=== PATIENT | male | born 1985 | race Caucasian/White ===

== ENCOUNTER 2021-01-22 12:11 | Inpatient (IN) | payer BC ==
[~2021-01-22] VITALS: Ht 175.3 cm; Wt 113.4 kg
[2021-01-22] VITALS (9 sets, daily range): BP systolic 161–188; BP diastolic 67–125
[~2021-01-22 12:11] MED LIST: ACAMPROSATE CA333 M1 PO; ALDACTONE50 M1 PO; AMITRIPTYLINE50 MG PO; BACLOFEN20 M1 PO; BENADRYL ALLERG25 M5 PO; CIALIS10 MG PO; CLARITIN10 MG PO; CLONIDINE HCL0.1 MG PO; DULOXETINE HCL40 MG PO; HYDROXYZINE HCL25 MG PO; IRON325 M1 PO; LIPITOR20 MG PO; LYRICA75 M1 PO; PROPRANOLOL HCL40 MG PO; PROTONIX40 MG PO; VITAMIN D350 MCG PO; XARE20MG PO
[2021-01-22 12:58] LABS: BASO # 0.1 10*3/uL (0.0-0.1); BASO % 1.4 % (0.0-1.0); EOS # 0.3 10*3/uL (0.0-0.4); EOS % 3.7 % (1.0-4.0); HEMATOCRIT 58.4 % (42.0-52.0); LYMPH # 1.8 10*3/uL (1.3-4.4); LYMPH % 24.9 % (27.0-41.0); MEAN CORPUSCULAR HGB 30.8 pg (27.0-31.0); MEAN CORPUSCULAR HGB CONC 34.2 g/dl (33.0-37.0); MEAN PLATELET VOLUME 9.6 fl (9.6-12.3); MONO # 0.9 10*3/uL (0.1-1.0); MONO % 11.8 % (3.0-9.0); NEUT # 4.3 10*3/uL (2.3-7.9); NEUT % 57.9 % (47.0-73.0); PLATELET COUNT AUTOMATED 299 10*3/uL (130-400); RED BLOOD COUNT 6.49 10*6/uL (4.50-5.90); RED CELL DISTRI WIDTH 12.9 % (0-14.5); WHITE BLOOD COUNT 7.4 10*3/uL (4.8-10.8)
[2021-01-22 13:18] LABS: ALBUMIN 4.3 gm/dl (3.1-4.5); ALKALINE PHOSPHATASE 123 U/L (45-117); BUN 7 mg/dl (7-24); CHLORIDE 101 mmol/L (98-107); CREATININE 0.76 mg/dL (0.70-1.30); LIPASE 1043 U/L (73-393); POTASSIUM 3.2 mmol/L (3.5-5.1); SGOT/AST 239 IU/L (3-35); SGPT/ALT 185 U/L (12-78); SODIUM 137 mmol/L (136-145); TOTAL PROTEIN 8.7 gm/dL (6.4-8.2)
[2021-01-22 13:27] LABS: TROPONIN I < 0.015 ng/ml (<0.045)
[2021-01-22 13:28] LABS: ACETAMINOPHEN (TYLENOL) < 5.0 ug/ml (10-30)
[2021-01-22 16:55] LABS: BILIRUBIN Negative (Negative); BLOOD 2+ (Negative); CLARITY Turbid (Clear); COLOR Orange (Yellow); GLUCOSE Negative (Negative); KETONE Negative (Negative); LEUKO ESTERASE Trace (Negative); NITRITE Positive (Negative); SPECIFIC GRAVITY <= 1.005 (1.001-1.030); UROBILINOGEN 0.2 E.U./dl (0.0-1.0)
[2021-01-22 16:59] LABS: URINE AMPHETAMINES < 1000 (1000ng/ml); URINE BARBITURATES < 200 (200ng/ml); URINE BENZODIAZEPINES < 200 (200ng/ml); URINE CANNABINOIDS (THC) < 50 (50ng/ml); URINE COCAINE < 300 (300ng/ml); URINE METHADONE < 300 (300ng/ml); URINE OPIATES < 300 (300ng/ml)
[2021-01-22 17:06] LABS: BACTERIA 3+; URINE PHENCYCLIDINE < 25 (25ng/ml); YEAST 1+
[2021-01-22] MEDS ORDERED: ONE DAILY ESSE1 EACH PO (17:34)
[2021-01-22] MEDS ORDERED: VITAMIN B-1250 MG PO (17:35)
[2021-01-23] VITALS (11 sets, daily range): BP systolic 124–194; BP diastolic 68–116
[2021-01-23] MEDS ORDERED: LYRICA50 M1 PO (04:25)
[2021-01-23 05:34] LABS: ACT PARTIAL THROMBO TIME 31.7 SECONDS (20.0-32.1); ALBUMIN 3.7 gm/dl (3.1-4.5); BUN 14 mg/dl (7-24); CHLORIDE 96 mmol/L (98-107); CHOLESTEROL 163 mg/dL (<200); CREATININE 0.82 mg/dL (0.70-1.30); INTERNATIONAL NORM RATIO 1.5 (2.0-3.5); POTASSIUM 3.6 mmol/L (3.5-5.1); SGOT/AST 255 IU/L (3-35); SODIUM 132 mmol/L (136-145); TRIGLYCERIDES 350 mg/dl (<150)
[2021-01-23 05:41] LABS: ALKALINE PHOSPHATASE 94 U/L (45-117); FREE T4 1.05 ng/dl (0.76-1.46); LDL CHOLESTEROL 43 mg/dL (9-159); SGPT/ALT 155 U/L (12-78); TOTAL PROTEIN 6.9 gm/dL (6.4-8.2)
[2021-01-23 06:58] LABS: BASO % 0.4 % (0.0-1.0); HEMATOCRIT 54.2 % (42.0-52.0); LYMPH # 1.3 10*3/uL (1.3-4.4); LYMPH % 13.4 % (27.0-41.0); MEAN CORPUSCULAR HGB 31.3 pg (27.0-31.0); MEAN PLATELET VOLUME 10.5 fl (9.6-12.3); MONO # 1.2 10*3/uL (0.1-1.0); MONO % 12.1 % (3.0-9.0); NEUT # 7.2 10*3/uL (2.3-7.9); NEUT % 73.5 % (47.0-73.0); RED BLOOD COUNT 5.71 10*6/uL (4.50-5.90); RED CELL DISTRI WIDTH 12.9 % (0-14.5); WHITE BLOOD COUNT 9.8 10*3/uL (4.8-10.8)
[2021-01-23 07:00] LABS: MEAN CELL VOLUME 94.9 fl (80.0-94.0); PLATELET COUNT AUTOMATED 188 10*3/uL (130-400)
[2021-01-23 08:03] LABS: VITAMIN D, 25-HYDROXY 30.6 ng/mL (30-100)
[2021-01-23 10:16] LABS: THYROID STIM HORMONE (HS) 0.932 uIU/ml (0.358-4.75)
[2021-01-23 13:40] LABS: ARTERIAL BLOOD GAS PH 7.387 (7.35-7.45); ARTERIAL BLOOD GAS PO2 70.4 (80-90)
[2021-01-23 14:21] LABS: BASO % 0.2 % (0.0-1.0); HEMATOCRIT 49.2 % (42.0-52.0); LYMPH # 1.2 10*3/uL (1.3-4.4); MEAN CELL VOLUME 93.5 fl (80.0-94.0); MEAN CORPUSCULAR HGB 31.9 pg (27.0-31.0); MEAN CORPUSCULAR HGB CONC 34.1 g/dl (33.0-37.0); MEAN PLATELET VOLUME 10.8 fl (9.6-12.3); MONO # 1.2 10*3/uL (0.1-1.0); MONO % 8.4 % (3.0-9.0); NEUT # 12.3 10*3/uL (2.3-7.9); NEUT % 82.9 % (47.0-73.0); PLATELET COUNT AUTOMATED 187 10*3/uL (130-400); RED BLOOD COUNT 5.26 10*6/uL (4.50-5.90); RED CELL DISTRI WIDTH 12.6 % (0-14.5); WHITE BLOOD COUNT 14.8 10*3/uL (4.8-10.8)
[2021-01-23 14:40] LABS: ALKALINE PHOSPHATASE 55 U/L (45-117); BUN 19 mg/dl (7-24); CHLORIDE 98 mmol/L (98-107); CREATININE 1.06 mg/dL (0.70-1.30); POTASSIUM 4.2 mmol/L (3.5-5.1); SGOT/AST 197 IU/L (3-35); SGPT/ALT 127 U/L (12-78); SODIUM 134 mmol/L (136-145); TOTAL PROTEIN 6.1 gm/dL (6.4-8.2)
[2021-01-23 18:20] LABS: BILIRUBIN Negative (Negative); BLOOD 2+ (Negative); CLARITY Clear (Clear); COLOR Dark Yellow (Yellow); GLUCOSE Trace (Negative); KETONE 1+ (Negative); LEUKO ESTERASE Negative (Negative); NITRITE Negative (Negative); SPECIFIC GRAVITY >= 1.030 (1.001-1.030); UROBILINOGEN 0.2 E.U./dl (0.0-1.0)
[2021-01-23 18:33] LABS: RBC 41-50 rbc/hpf (0-2)
[2021-01-23 18:33] LABS: HEMATOCRIT 50.2 % (42.0-52.0); MEAN CORPUSCULAR HGB 31.9 pg (27.0-31.0); MEAN CORPUSCULAR HGB CONC 32.9 g/dl (33.0-37.0); MEAN PLATELET VOLUME 11.2 fl (9.6-12.3); PLATELET COUNT AUTOMATED 173 10*3/uL (130-400); RED BLOOD COUNT 5.17 10*6/uL (4.50-5.90); RED CELL DISTRI WIDTH 12.7 % (0-14.5); WHITE BLOOD COUNT 20.7 10*3/uL (4.8-10.8)
[2021-01-23 18:34] LABS: BACTERIA 3+; HYALINE CAST 21-30
[2021-01-23 18:37] LABS: MEAN CELL VOLUME 97.1 fl (80.0-94.0)
[2021-01-23 19:02] LABS: TOTAL CELLS COUNTED 100 #CELLS
[2021-01-23 19:03] LABS: PLATELET SUFFICIENCY NORMAL (NORMAL)
[2021-01-23 22:24] LABS: HEMATOCRIT 50.1 % (42.0-52.0); MEAN CELL VOLUME 95.8 fl (80.0-94.0); MEAN CORPUSCULAR HGB 31.7 pg (27.0-31.0); MEAN CORPUSCULAR HGB CONC 33.1 g/dl (33.0-37.0); MEAN PLATELET VOLUME 11.2 fl (9.6-12.3); PLATELET COUNT AUTOMATED 177 10*3/uL (130-400); RED BLOOD COUNT 5.23 10*6/uL (4.50-5.90); RED CELL DISTRI WIDTH 12.6 % (0-14.5); WHITE BLOOD COUNT 23.3 10*3/uL (4.8-10.8)
[2021-01-23 22:53] LABS: ATYPICAL LYMPHS 2 % (0-0); BASOPHILS 1 % (0-1); PLATELET SUFFICIENCY NORMAL (NORMAL); TOTAL CELLS COUNTED 100 #CELLS
[2021-01-24] VITALS (12 sets, daily range): BP systolic 86–116; BP diastolic 43–81
[2021-01-24 06:09] LABS: HEMATOCRIT 44.7 % (42.0-52.0); MEAN CELL VOLUME 96.8 fl (80.0-94.0); MEAN CORPUSCULAR HGB 32.5 pg (27.0-31.0); MEAN CORPUSCULAR HGB CONC 33.6 g/dl (33.0-37.0); MEAN PLATELET VOLUME 11.6 fl (9.6-12.3); NUCLEATED RED BLOOD CELL 0.2 % (0.0-0.0); PLATELET COUNT AUTOMATED 152 10*3/uL (130-400); RED BLOOD COUNT 4.62 10*6/uL (4.50-5.90); RED CELL DISTRI WIDTH 12.8 % (0-14.5); WHITE BLOOD COUNT 18.9 10*3/uL (4.8-10.8)
[2021-01-24 06:25] LABS: ALBUMIN 2.5 gm/dl (3.1-4.5)
[2021-01-24 06:28] LABS: CREATININE 1.79 mg/dL (0.70-1.30); TOTAL PROTEIN 5.8 gm/dL (6.4-8.2)
[2021-01-24 06:34] LABS: POTASSIUM 3.2 mmol/L (3.5-5.1)
[2021-01-24 06:55] LABS: TOTAL CELLS COUNTED 100 #CELLS
[2021-01-24 06:56] LABS: PLATELET SUFFICIENCY NORMAL (NORMAL)
[2021-01-24 07:39] LABS: ABG BASE EXCESS -2.2 mmol/L (-2.0-2.0); ARTERIAL BLOOD GAS PH 7.408 (7.35-7.45); ARTERIAL BLOOD GAS PO2 95.9 (80-90)
[2021-01-24 13:07] LABS: BASO % 0.2 % (0.0-1.0); EOS % 0.1 % (1.0-4.0); HEMATOCRIT 40.1 % (42.0-52.0); LYMPH # 1.9 10*3/uL (1.3-4.4); LYMPH % 14.1 % (27.0-41.0); MEAN CELL VOLUME 96.9 fl (80.0-94.0); MEAN CORPUSCULAR HGB 31.6 pg (27.0-31.0); MEAN CORPUSCULAR HGB CONC 32.7 g/dl (33.0-37.0); MEAN PLATELET VOLUME 11.3 fl (9.6-12.3); MONO # 1.1 10*3/uL (0.1-1.0); MONO % 8.3 % (3.0-9.0); NEUT # 10.1 10*3/uL (2.3-7.9); NEUT % 76.6 % (47.0-73.0); PLATELET COUNT AUTOMATED 135 10*3/uL (130-400); RED BLOOD COUNT 4.14 10*6/uL (4.50-5.90); RED CELL DISTRI WIDTH 12.8 % (0-14.5); WHITE BLOOD COUNT 13.2 10*3/uL (4.8-10.8)
[2021-01-24 13:25] LABS: ALBUMIN 2.3 gm/dl (3.1-4.5); ALKALINE PHOSPHATASE 53 U/L (45-117); BUN 33 mg/dl (7-24); CHLORIDE 106 mmol/L (98-107); CREATININE 1.51 mg/dL (0.70-1.30); POTASSIUM 3.3 mmol/L (3.5-5.1); SGOT/AST 165 IU/L (3-35); SGPT/ALT 84 U/L (12-78); SODIUM 139 mmol/L (136-145); TOTAL PROTEIN 5.3 gm/dL (6.4-8.2)
[2021-01-24 18:19] LABS: BASO % 0.2 % (0.0-1.0); EOS % 0.4 % (1.0-4.0); HEMATOCRIT 38.3 % (42.0-52.0); LYMPH # 1.6 10*3/uL (1.3-4.4); LYMPH % 15.1 % (27.0-41.0); MEAN CELL VOLUME 96.2 fl (80.0-94.0); MEAN CORPUSCULAR HGB 31.4 pg (27.0-31.0); MEAN CORPUSCULAR HGB CONC 32.6 g/dl (33.0-37.0); MEAN PLATELET VOLUME 11.4 fl (9.6-12.3); MONO # 0.8 10*3/uL (0.1-1.0); MONO % 7.1 % (3.0-9.0); NEUT # 8.3 10*3/uL (2.3-7.9); NEUT % 76.7 % (47.0-73.0); PLATELET COUNT AUTOMATED 123 10*3/uL (130-400); RED BLOOD COUNT 3.98 10*6/uL (4.50-5.90); RED CELL DISTRI WIDTH 12.8 % (0-14.5); WHITE BLOOD COUNT 10.8 10*3/uL (4.8-10.8)
[2021-01-24 18:38] LABS: ALBUMIN 2.2 gm/dl (3.1-4.5); ALKALINE PHOSPHATASE 52 U/L (45-117); BUN 28 mg/dl (7-24); CHLORIDE 107 mmol/L (98-107); POTASSIUM 2.9 mmol/L (3.5-5.1); SGOT/AST 158 IU/L (3-35); SGPT/ALT 78 U/L (12-78); SODIUM 140 mmol/L (136-145); TOTAL PROTEIN 5.3 gm/dL (6.4-8.2)
[2021-01-25] VITALS (35 sets, daily range): BP systolic 93–130; BP diastolic 37–81
[2021-01-25 04:42] LABS: BASO % 0.4 % (0.0-1.0); EOS # 0.2 10*3/uL (0.0-0.4); EOS % 1.6 % (1.0-4.0); HEMATOCRIT 39.5 % (42.0-52.0); LYMPH # 1.7 10*3/uL (1.3-4.4); LYMPH % 16.7 % (27.0-41.0); MEAN CELL VOLUME 97.3 fl (80.0-94.0); MEAN CORPUSCULAR HGB 31.8 pg (27.0-31.0); MEAN CORPUSCULAR HGB CONC 32.7 g/dl (33.0-37.0); MEAN PLATELET VOLUME 11.2 fl (9.6-12.3); MONO # 0.9 10*3/uL (0.1-1.0); NEUT # 7.1 10*3/uL (2.3-7.9); NUCLEATED RED BLOOD CELL 0.4 % (0.0-0.0); PLATELET COUNT AUTOMATED 124 10*3/uL (130-400); RED BLOOD COUNT 4.06 10*6/uL (4.50-5.90); WHITE BLOOD COUNT 10.1 10*3/uL (4.8-10.8)
[2021-01-25 04:52] LABS: ACT PARTIAL THROMBO TIME 26.4 SECONDS (20.0-32.1); INTERNATIONAL NORM RATIO 1.2 (2.0-3.5)
[2021-01-25 05:02] LABS: ALBUMIN 2.4 gm/dl (3.1-4.5); ALKALINE PHOSPHATASE 60 U/L (45-117); BUN 23 mg/dl (7-24); CHLORIDE 111 mmol/L (98-107); CREATININE 0.83 mg/dL (0.70-1.30); LIPASE 311 U/L (73-393); POTASSIUM 3.6 mmol/L (3.5-5.1); SGOT/AST 148 IU/L (3-35); SGPT/ALT 81 U/L (12-78); SODIUM 140 mmol/L (136-145); TOTAL PROTEIN 5.9 gm/dL (6.4-8.2)
[2021-01-25 07:18] LABS: ABG BASE EXCESS 0.7 mmol/L (-2.0-2.0); ARTERIAL BLOOD GAS PH 7.4 (7.35-7.45); ARTERIAL BLOOD GAS PO2 108.4 (80-90)
== END 2021-01-25 10:06 | disposition short-term general hospital (02) | DRG 871 ==
LOC: ED 12:11 → ICCU 14:25 → EDHOLD 14:25 → ICCU 01-23 02:22
PROVIDERS: Internal Medicine; Physician Assistant; ADMIT Internal Medicine; ATTEND Internal Medicine
PROC: 02HV33Z Insertion of Infusion Device into Superior Vena Cava, Percutaneous Approach (ICD-10-PCS; principal; 2021-01-23)
PROC: B548ZZA Ultrasonography of Superior Vena Cava, Guidance (ICD-10-PCS; 2021-01-23)
PROC: 0BH17EZ Insertion of Endotracheal Airway into Trachea, Via Natural or Artificial Opening (ICD-10-PCS; 2021-01-24)
PROC: 5A1935Z Respiratory Ventilation, Less than 24 Consecutive Hours (ICD-10-PCS; 2021-01-24)
DX: A41.9 Sepsis, unspecified organism (principal); G93.41 Metabolic encephalopathy; K85.20 Alcohol induced acute pancreatitis without necrosis or infection; J96.01 Acute respiratory failure with hypoxia; F10.232 Alcohol dependence with withdrawal with perceptual disturbance; E87.2 Acidosis; N39.0 Urinary tract infection, site not specified; K92.2 Gastrointestinal hemorrhage, unspecified; R65.20 Severe sepsis without septic shock; F17.210 Nicotine dependence, cigarettes, uncomplicated; E87.6 Hypokalemia; R74.01 Elevation of levels of liver transaminase levels; E83.52 Hypercalcemia; Z20.822 Contact with and (suspected) exposure to COVID-19; Z71.6 Tobacco abuse counseling; R73.9 Hyperglycemia, unspecified; Z86.711 Personal history of pulmonary embolism; Z88.8 Allergy status to other drugs, medicaments and biological substances; Z90.49 Acquired absence of other specified parts of digestive tract

== ENCOUNTER 2021-03-17 12:21 | Emergency (ER) | payer BC ==
[~2021-03-17] VITALS: Ht 180.3 cm; Wt 104.5 kg
[~2021-03-17 12:21] MED LIST changes: +LYRICA50 M1 PO; +ONE DAILY ESSE1 EACH PO; +VITAMIN B-1250 MG PO
[2021-03-17 13:13] LABS: HEMATOCRIT 58.6 % (42.0-52.0); MEAN CELL VOLUME 89.2 fl (80.0-94.0); MEAN CORPUSCULAR HGB 29.4 pg (27.0-31.0); MEAN CORPUSCULAR HGB CONC 32.9 g/dl (33.0-37.0); MEAN PLATELET VOLUME 10.3 fl (9.6-12.3); PLATELET COUNT AUTOMATED 371 10*3/uL (130-400); RED BLOOD COUNT 6.57 10*6/uL (4.50-5.90); RED CELL DISTRI WIDTH 12.5 % (0-14.5); WHITE BLOOD COUNT 10.5 10*3/uL (4.8-10.8)
[2021-03-17 13:38] LABS: PLATELET SUFFICIENCY NORMAL (NORMAL); TOTAL CELLS COUNTED 100 #CELLS
[2021-03-17 13:46] LABS: ALBUMIN 3.9 gm/dl (3.1-4.5); ALKALINE PHOSPHATASE 145 U/L (45-117); BUN 10 mg/dl (7-24); CHLORIDE 94 mmol/L (98-107); SODIUM 124 mmol/L (136-145); TOTAL PROTEIN 9.4 gm/dL (6.4-8.2)
[2021-03-17 13:49] LABS: TROPONIN I < 0.015 ng/ml (<0.045)
[2021-03-17 14:26] LABS: SGOT/AST 69 IU/L (3-35); SGPT/ALT 47 U/L (12-78)
[2021-03-17 16:01] LABS: ARTERIAL BLOOD GAS PO2 118.4 (80-90)
[2021-03-17 16:13] LABS: ABG BASE EXCESS -22.6 mmol/L (-2.0-2.0); ARTERIAL BLOOD GAS PH 7.113 (7.35-7.45)
[2021-03-17 19:42] LABS: BUN 11 mg/dl (7-24); CHLORIDE 97 mmol/L (98-107); CREATININE 1.16 mg/dL (0.70-1.30); SODIUM 124 mmol/L (136-145)
[2021-03-17 23:26] LABS: BUN 12 mg/dl (7-24); CHLORIDE 100 mmol/L (98-107); CREATININE 1.44 mg/dL (0.70-1.30); POTASSIUM 4.5 mmol/L (3.5-5.1); SODIUM 131 mmol/L (136-145)
== END 2021-03-18 00:08 | disposition short-term general hospital (02) ==
LOC: ED 12:21
PROVIDERS: Emergency Medicine; Internal Medicine
DX: E11.10 Type 2 diabetes mellitus with ketoacidosis without coma (principal); Z88.8 Allergy status to other drugs, medicaments and biological substances; Z79.899 Other long term (current) drug therapy; Z87.891 Personal history of nicotine dependence

== ENCOUNTER → 2021-05-16 | Outpatient (CLI) | payer BC ==
[2021-05-16 10:35] LABS: HEMATOCRIT 38.1 % (42.0-52.0); MEAN CELL VOLUME 83.4 fl (80.0-94.0); MEAN CORPUSCULAR HGB 25.8 pg (27.0-31.0); MEAN PLATELET VOLUME 9.7 fl (9.6-12.3); PLATELET COUNT AUTOMATED 178 10*3/uL (130-400); RED BLOOD COUNT 4.57 10*6/uL (4.50-5.90); RED CELL DISTRI WIDTH 17.3 % (0-14.5); WHITE BLOOD COUNT 6.2 10*3/uL (4.8-10.8)
[2021-05-16 10:46] LABS: INTERNATIONAL NORM RATIO 1.5 (2.0-3.5)
[2021-05-16 10:53] LABS: ALBUMIN 2.2 gm/dl (3.1-4.5); CREATININE 2.23 mg/dL (0.70-1.30); POTASSIUM 4.3 mmol/L (3.5-5.1); TOTAL PROTEIN 7.3 gm/dL (6.4-8.2)
[2021-05-16 10:58] LABS: TOTAL CELLS COUNTED 100 #CELLS
[2021-05-16 11:02] LABS: PLATELET SUFFICIENCY NORMAL (NORMAL); POLYCHROMASIA SLIGHT
[2021-05-18 10:07] LABS: APTT 36.3 sec (22.9-30.2); APTT 1:1 NORMAL PLASMA 28.8 sec (22.9-30.2)
[2021-05-18 15:07] LABS: APTT 1:1 NP INCUB MIX CTL 33.9 sec (22.9-30.2); APTT 1:1 NP MIX, 60 MIN, INC 31.6 sec (22.9-30.2)
== END | disposition home or self-care (01) ==
LOC: LAB 09:42
PROVIDERS: ATTEND Family Medicine
DX: R23.3 Spontaneous ecchymoses (principal)

== ENCOUNTER 2021-06-22 07:26 | Emergency (ER) | payer BC | END 2021-06-22 08:37 | disposition left against medical advice (07) | LOC: ED 07:26 | DX: Z53.21 Procedure and treatment not carried out due to patient leaving prior to being seen by health care provider (principal) ==

== ENCOUNTER 2021-10-04 14:38 | Emergency (ER) | payer BC ==
[2021-10-04] VITALS (28 sets, daily range): BP systolic 76–105; BP diastolic 4–57
[~2021-10-04] VITALS: Ht 175.2 cm; Wt 101.6 kg
[2021-10-04] MEDS ORDERED: OXYCODONE HCL10 M1 PO (14:51)
[2021-10-04 15:17] LABS: HEMATOCRIT 37.5 % (42.0-52.0); MEAN CELL VOLUME 82.2 fl (80.0-94.0); MEAN CORPUSCULAR HGB 25.7 pg (27.0-31.0); MEAN CORPUSCULAR HGB CONC 31.2 g/dl (33.0-37.0); PLATELET COUNT AUTOMATED 240 10*3/uL (130-400); RED BLOOD COUNT 4.56 10*6/uL (4.50-5.90); RED CELL DISTRI WIDTH 14.2 % (0-14.5)
[2021-10-04 15:26] LABS: MANUAL DIFF REFLEX YES
[2021-10-04 15:35] LABS: CREATININE 2.76 mg/dL (0.70-1.30); POTASSIUM 5.8 mmol/L (3.5-5.1); TOTAL PROTEIN 5.6 gm/dL (6.4-8.2)
[2021-10-04 15:48] LABS: PLATELET SUFFICIENCY NORMAL (NORMAL); POLYCHROMASIA SLIGHT; TOTAL CELLS COUNTED 100 #CELLS
[2021-10-04 16:35] LABS: VENOUS PH 7.269 (7.37-7.45)
[2021-10-04 17:51] LABS: LIPASE 162 U/L (73-393)
[2021-10-04 18:25] LABS: BILIRUBIN Negative (Negative); BLOOD 3+ (Negative); CLARITY Turbid (Clear); COLOR Orange (Yellow); GLUCOSE 2+ (Negative); KETONE Trace (Negative); LEUKO ESTERASE 1+ (Negative); NITRITE Negative (Negative)
[2021-10-04 18:41] LABS: BACTERIA 2+; RBC TNTC rbc/hpf (0-2)
[2021-10-04 18:44] LABS: CALCIUM OXALATE CRYSTALS 1+
[2021-10-05] VITALS (9 sets, daily range): BP systolic 88–105; BP diastolic 40–60
== END 2021-10-05 07:50 | disposition short-term general hospital (02) ==
LOC: ED 14:38 → EDHOLD 16:45 → ED 10-05 07:50
PROVIDERS: Emergency Medicine; Student in an Organized Health Care Education/Training Program
DX: A41.9 Sepsis, unspecified organism (principal); Z20.822 Contact with and (suspected) exposure to COVID-19; R73.9 Hyperglycemia, unspecified; R42 Dizziness and giddiness; R53.1 Weakness; R53.83 Other fatigue; R31.9 Hematuria, unspecified; F17.200 Nicotine dependence, unspecified, uncomplicated; Z88.8 Allergy status to other drugs, medicaments and biological substances; Z79.899 Other long term (current) drug therapy; Z90.49 Acquired absence of other specified parts of digestive tract

== ENCOUNTER → 2021-10-31 | Outpatient (CLI) | payer BC ==
[~2021-10-31] MED LIST changes: +OXYCODONE HCL10 M1 PO
== END | disposition home or self-care (01) ==
LOC: CT 14:00
PROVIDERS: ATTEND Internal Medicine Infectious Disease
DX: R91.1 Solitary pulmonary nodule (principal); N62 Hypertrophy of breast; Z90.49 Acquired absence of other specified parts of digestive tract

== ENCOUNTER → 2022-04-16 | Outpatient (CLI) | payer BC ==
[2022-04-16 17:00] LABS: ALKALINE PHOSPHATASE 78 U/L (45-117); BUN 14 mg/dl (7-24); CHLORIDE 103 mmol/L (98-107); CHOLESTEROL 189 mg/dL (<200); CREATININE 1.12 mg/dL (0.70-1.30); POTASSIUM 4.7 mmol/L (3.5-5.1); SGOT/AST 16 IU/L (3-35); SGPT/ALT 29 U/L (12-78); SODIUM 139 mmol/L (136-145); TOTAL PROTEIN 7.8 gm/dL (6.4-8.2); TRIGLYCERIDES 274 mg/dl (<150)
[2022-04-16 17:05] LABS: FREE T4 0.97 ng/dl (0.76-1.46); LDL CHOLESTEROL 86 mg/dL (9-159); THYROID STIM HORMONE (HS) 0.848 uIU/ml (0.358-4.75)
[2022-04-17 10:07] LABS: CREATININE,URINE 114.6 mg/dL (Not Estab.)
[2022-04-18 17:06] LABS: GLUTAMIC ACID DECARB AB <5.0 U/mL (0.0-5.0)
== END | disposition home or self-care (01) ==
LOC: LAB 15:51
PROVIDERS: ATTEND Internal Medicine Endocrinology, Diabetes & Metabolism
DX: E55.9 Vitamin D deficiency, unspecified (principal); E08.69 Diabetes mellitus due to underlying condition with other specified complication; Z79.4 Long term (current) use of insulin

== ENCOUNTER → 2022-05-24 | Outpatient (CLI) | payer BC | END | disposition home or self-care (01) | LOC: RAD 15:22 | PROVIDERS: ATTEND Family Medicine | DX: R05.3 Chronic cough (principal) ==

== ENCOUNTER → 2022-12-06 | Outpatient (CLI) | payer MEDICAID | END | disposition home or self-care (01) | LOC: CARD 00:11 | PROVIDERS: ATTEND Internal Medicine Cardiovascular Disease | DX: I25.2 Old myocardial infarction (principal) ==

== ENCOUNTER 2023-02-17 11:58 | Emergency (ER) | payer MEDICAID ==
[~2023-02-17] VITALS: Ht 175.2 cm; Wt 104.3 kg
[2023-02-17 12:09] VITALS: BP 131/81
[2023-02-17] MEDS ORDERED: ONDANSETRON HYDR4 MG PO (12:25)
[2023-02-17] MEDS ORDERED: ELIQUIS5 M1 PO (12:28)
[2023-02-17] MEDS ORDERED: PROTONIX40 MG PO (12:29)
[2023-02-17 12:33] LABS: BASO # 0.1 10*3/uL (0.0-0.1); BASO % 0.6 % (0.0-1.0); EOS % 0.1 % (1.0-4.0); HEMATOCRIT 55.3 % (42.0-52.0); LYMPH % 6.7 % (27.0-41.0); MEAN CELL VOLUME 86.9 fl (80.0-94.0); MEAN CORPUSCULAR HGB 29.2 pg (27.0-31.0); MEAN CORPUSCULAR HGB CONC 33.6 g/dl (33.0-37.0); MEAN PLATELET VOLUME 9.7 fl (9.6-12.3); MONO # 1.3 10*3/uL (0.1-1.0); MONO % 8.5 % (3.0-9.0); NEUT # 12.7 10*3/uL (2.3-7.9); NEUT % 83.6 % (47.0-73.0); PLATELET COUNT AUTOMATED 217 10*3/uL (130-400); RED BLOOD COUNT 6.36 10*6/uL (4.50-5.90); RED CELL DISTRI WIDTH 12.9 % (0-14.5); WHITE BLOOD COUNT 15.2 10*3/uL (4.8-10.8)
[2023-02-17 12:55] LABS: ALKALINE PHOSPHATASE 83 U/L (46-116); BUN 12 mg/dl (9-23); CHLORIDE 95 mmol/L (98-107); LIPASE 33 U/L (12-53); POTASSIUM 4.3 mmol/L (3.4-5.1); SGPT/ALT 39 U/L (10-49); TOTAL PROTEIN 7.6 gm/dL (6.0-8.0)
[2023-02-17 13:37] VITALS: BP 114/73
[2023-02-17 16:22] VITALS: BP 101/36
[2023-02-17 18:09] VITALS: BP 105/51
== END 2023-02-17 19:33 | disposition admitted as inpatient to this hospital (09) ==
LOC: ED 11:58 → EDHOLD 15:08 → ED 15:08 → 4E 15:28 → EDHOLD 15:28 → ED 19:33
PROVIDERS: Nurse Practitioner Family
DX: A41.9 Sepsis, unspecified organism (principal); J18.9 Pneumonia, unspecified organism; K29.70 Gastritis, unspecified, without bleeding; K29.60 Other gastritis without bleeding; K92.0 Hematemesis; I10 Essential (primary) hypertension; E11.9 Type 2 diabetes mellitus without complications; Z86.718 Personal history of other venous thrombosis and embolism; Z88.8 Allergy status to other drugs, medicaments and biological substances; Z90.49 Acquired absence of other specified parts of digestive tract; Z98.890 Other specified postprocedural states; F10.10 Alcohol abuse, uncomplicated; F14.10 Cocaine abuse, uncomplicated; F12.10 Cannabis abuse, uncomplicated; F17.200 Nicotine dependence, unspecified, uncomplicated; F11.10 Opioid abuse, uncomplicated; Z20.822 Contact with and (suspected) exposure to COVID-19

== ENCOUNTER 2023-03-25 11:59 | Emergency (ER) | payer MEDICAID ==
[~2023-03-25] VITALS: Ht 175.2 cm; Wt 106.6 kg
[~2023-03-25 11:59] MED LIST changes: +ELIQUIS5 M1 PO; +ONDANSETRON HYDR4 MG PO
[2023-03-25 12:14] VITALS: BP 103/72
[2023-03-25 13:03] LABS: BASO # 0.1 10*3/uL (0.0-0.1); BASO % 0.6 % (0.0-1.0); EOS # 0.1 10*3/uL (0.0-0.4); EOS % 0.4 % (1.0-4.0); HEMATOCRIT 49.7 % (42.0-52.0); LYMPH % 9.1 % (27.0-41.0); MEAN CORPUSCULAR HGB 29.2 pg (27.0-31.0); MEAN CORPUSCULAR HGB CONC 33.2 g/dl (33.0-37.0); MONO # 0.9 10*3/uL (0.1-1.0); MONO % 8.4 % (3.0-9.0); NEUT % 81.1 % (47.0-73.0); PLATELET COUNT AUTOMATED 171 10*3/uL (130-400); RED BLOOD COUNT 5.65 10*6/uL (4.50-5.90); RED CELL DISTRI WIDTH 12.7 % (0-14.5); WHITE BLOOD COUNT 11.2 10*3/uL (4.8-10.8)
[2023-03-25 13:15] LABS: INTERNATIONAL NORM RATIO 1.1 (2.0-3.5)
[2023-03-25 13:30] LABS: ALKALINE PHOSPHATASE 78 U/L (46-116); BUN 12 mg/dl (9-23); CHLORIDE 95 mmol/L (98-107); POTASSIUM 4.3 mmol/L (3.4-5.1); SGPT/ALT 40 U/L (10-49); TOTAL PROTEIN 7.5 gm/dL (6.0-8.0)
[2023-03-25 17:55] VITALS: BP 97/46
== END 2023-03-25 20:04 | disposition admitted as inpatient to this hospital (09) ==
LOC: ED 11:59 → EDHOLD 16:29
PROVIDERS: Nurse Practitioner Family
DX: J18.9 Pneumonia, unspecified organism (principal); Z86.718 Personal history of other venous thrombosis and embolism; K21.9 Gastro-esophageal reflux disease without esophagitis; I10 Essential (primary) hypertension; E11.9 Type 2 diabetes mellitus without complications; E78.00 Pure hypercholesterolemia, unspecified; F41.9 Anxiety disorder, unspecified; E11.40 Type 2 diabetes mellitus with diabetic neuropathy, unspecified; Z88.8 Allergy status to other drugs, medicaments and biological substances; Z90.49 Acquired absence of other specified parts of digestive tract; Z98.890 Other specified postprocedural states; F10.10 Alcohol abuse, uncomplicated; F14.10 Cocaine abuse, uncomplicated; F12.10 Cannabis abuse, uncomplicated; F19.10 Other psychoactive substance abuse, uncomplicated; Z20.822 Contact with and (suspected) exposure to COVID-19

== ENCOUNTER → 2023-04-15 | Outpatient (CLI) | payer MEDICAID | END | disposition home or self-care (01) | LOC: CT 10:52 | PROVIDERS: ATTEND Internal Medicine Critical Care Medicine | DX: K76.0 Fatty (change of) liver, not elsewhere classified (principal); R16.1 Splenomegaly, not elsewhere classified; R06.83 Snoring; R91.8 Other nonspecific abnormal finding of lung field; R91.1 Solitary pulmonary nodule; Z87.891 Personal history of nicotine dependence; Z68.35 Body mass index [BMI] 35.0-35.9, adult; Z90.49 Acquired absence of other specified parts of digestive tract ==

== ENCOUNTER → 2023-06-20 | Outpatient (CLI) | payer MEDICAID ==
[2023-06-20 15:52] LABS: URINE AMPHETAMINES Negative (1000ng/ml); URINE BARBITURATES Negative (200ng/ml); URINE BENZODIAZEPINES Negative (200ng/ml); URINE CANNABINOIDS (THC) Positive (50ng/ml); URINE COCAINE Negative (300ng/ml); URINE METHADONE Negative (300ng/ml); URINE OPIATES Negative (300ng/ml); URINE PHENCYCLIDINE Negative (25ng/ml)
== END | disposition home or self-care (01) ==
LOC: LAB 14:52
PROVIDERS: Family Medicine; ATTEND Family Medicine
DX: M79.671 Pain in right foot (principal); Z79.899 Other long term (current) drug therapy

== ENCOUNTER 2024-07-20 07:52 | Inpatient (IN) | payer MEDICAID ==
[~2024-07-20] VITALS: Ht 175.2 cm; Wt 110.5 kg
[~2024-07-20 07:52] MED LIST changes: +HUMULIN R500 UNIT/1 SC; +LEVOFLOXACIN750 M2 PO; +LYRICA150 M1 PO; -LYRICA50 M1 PO; +MAGNESIUM200 MG PO; +METFORMIN HYD1000 MG PO; +OMNICEF300 MG PO; +ONDANSETRON4 MG SL; +ZYRTEC10 M2 PO
[2024-07-20 08:23] VITALS: BP 120/36
[2024-07-20] MEDS ORDERED: CAPLYTA21 M1 PO (08:28)
[2024-07-20] MEDS ORDERED: GINGER500 MG PO (08:29)
[2024-07-20 09:02] LABS: BASO # 0.1 10*3/uL (0.0-0.1); BASO % 1.2 % (0.0-1.0); EOS # 0.2 10*3/uL (0.0-0.4); EOS % 1.8 % (1.0-4.0); HEMATOCRIT 49.5 % (42.0-52.0); MEAN CELL VOLUME 88.7 fl (80.0-94.0); MEAN CORPUSCULAR HGB 27.4 pg (27.0-31.0); MEAN CORPUSCULAR HGB CONC 30.9 g/dl (33.0-37.0); MEAN PLATELET VOLUME 10.1 fl (9.6-12.3); MONO # 0.8 10*3/uL (0.1-1.0); MONO % 7.7 % (3.0-9.0); NEUT # 8.2 10*3/uL (2.3-7.9); NEUT % 78.9 % (47.0-73.0); PLATELET COUNT AUTOMATED 141 10*3/uL (130-400); RED BLOOD COUNT 5.58 10*6/uL (4.50-5.90); RED CELL DISTRI WIDTH 12.9 % (0-14.5); WHITE BLOOD COUNT 10.3 10*3/uL (4.8-10.8)
[2024-07-20 09:04] LABS: VENOUS BLOOD GAS O2 SAT 49.5 % (60.0-85.0)
[2024-07-20 09:13] LABS: ACT PARTIAL THROMBO TIME 29.1 SECONDS (20.0-32.1)
[2024-07-20 09:24] LABS: ALKALINE PHOSPHATASE 95 U/L (46-116); BUN 11 mg/dl (9-23); CHLORIDE 101 mmol/L (98-107); POTASSIUM 4.9 mmol/L (3.4-5.1); SGPT/ALT 62 U/L (5-49); TOTAL PROTEIN 6.7 gm/dL (6.0-8.0)
[2024-07-20] MEDS ORDERED: Ampicillin Sodium/Sulbactam 3 GM in SODIUM CHLORIDE 0.9% 100 ML IV ONE (09:40)
[2024-07-20] MEDS ORDERED: SODIUM CHLORIDE 0.9% 1,000 ML IV ONE (09:40)
[2024-07-20] MEDS ORDERED: Doxycycline Hyclate 100 MG CAP PO ONE (09:40)
[2024-07-20 10:13] VITALS: BP 118/71
[2024-07-20] MEDS ORDERED: Magnesium Hydroxide 30 ML UDC PO PRN (12:20)
[2024-07-20] MEDS ORDERED: TEMAZEPAM 15 MG CAP PO PRN (12:20)
[2024-07-20] MEDS ORDERED: Acetaminophen/Hydrocodone 5 MG/325 MG TABLET PO PRN (12:20)
[2024-07-20] MEDS ORDERED: BISACODYL 10 MG SUPP R PRN (12:20)
[2024-07-20] MEDS ORDERED: MORPHINE Sulfate 2 MG/ML SYR IV PRN (12:20)
[2024-07-20] MEDS ORDERED: Ondansetron Hydrochloride 4 MG/2 ML VIAL IV PRN (12:20)
[2024-07-20] MEDS ORDERED: BISACODYL 5 MG TAB PO PRN (12:20)
[2024-07-20] MEDS ORDERED: Ceftriaxone Sodium 10 ML IV ONE (12:35)
[2024-07-20] MEDS ORDERED: Albuterol Sulf/Ipratropium 3 ML VIAL NEB SCH (12:55)
[2024-07-20] MEDS ORDERED: DEXTROSE 10 % IN WATER 250 ML IV PRN (13:00)
[2024-07-20 14:30] VITALS: BP 98/44
[2024-07-20 16:21] VITALS: BP 110/56
[2024-07-20] MEDS ORDERED: INSULIN LISPRO 1 UNIT/0.01 ML SQ SCH (16:30)
[2024-07-20 20:00] VITALS: BP 128/87
[2024-07-20 21:01] VITALS: BP 110/70
[2024-07-20] MEDS ORDERED: GUAIFENESIN 600 MG TAB ER PO SCH (22:00)
[2024-07-20] MEDS ORDERED: APIXABAN 5 MG TAB PO SCH (22:00)
[2024-07-20] MEDS ORDERED: LYRICA300 MG PO (22:20)
[2024-07-20] MEDS ORDERED: XANAX0.5 MG PO (22:21)
[2024-07-20] MEDS ORDERED: ALPRAZolam 0.5 MG TAB PO PRN (22:40)
[2024-07-20] MEDS ORDERED: LUMATEPERONE PO SCH (23:15)
[2024-07-20] MEDS ORDERED: GINGER 500 MG PO SCH (23:15)
[2024-07-20] MEDS ORDERED: PREGABALIN 75 MG CAP PO SCH ×2 (23:18)
[2024-07-20] MEDS ORDERED: Cetirizine Hydrochloride 10 MG TAB PO SCH (23:18)
[2024-07-20] MEDS ORDERED: diphenhydrAMINE hydrochloride 25 MG CAP PO SCH (23:20)
[2024-07-20] MEDS ORDERED: Propranolol Hydrochloride 20 MG TAB PO SCH (23:20)
[2024-07-20] MEDS ORDERED: Amitriptyline Hydrochloride 50 MG TAB PO SCH (23:20)
[2024-07-20] MEDS ORDERED: cloNIDine Hydrochloride 0.1 MG TAB PO SCH (23:20)
[2024-07-20] MEDS ORDERED: FERROUS SULFATE 325 MG TAB PO SCH (23:20)
[2024-07-20] MEDS ORDERED: Thiamine 100 MG TAB PO SCH (23:20)
[2024-07-20] MEDS ORDERED: MULTIVITAMIN 1 TAB TAB PO SCH (23:20)
[2024-07-20] MEDS ORDERED: ATORVASTATIN CALCIUM 20 MG TAB PO SCH (23:20)
[2024-07-20] MEDS ORDERED: SPIRONOLACTONE 25 MG TAB PO SCH (23:20)
[2024-07-20] MEDS ORDERED: Cholecalciferol 2,000 UNIT TABLET (50 MCG) PO SCH (23:20)
[2024-07-20] MEDS ORDERED: Duloxetine Hydrochloride 60 MG CAP PO SCH (23:20)
[2024-07-20] MEDS ORDERED: BACLOFEN 10 MG TAB PO SCH (23:20)
[2024-07-21] VITALS: BP 111/49
[2024-07-21] MEDS ORDERED: Pantoprazole Sodium 40 MG TAB PO SCH (06:00)
[2024-07-21 06:41] LABS: BASO # 0.1 10*3/uL (0.0-0.1); BASO % 1.6 % (0.0-1.0); EOS # 0.3 10*3/uL (0.0-0.4); EOS % 5.6 % (1.0-4.0); HEMATOCRIT 44.2 % (42.0-52.0); MEAN CORPUSCULAR HGB 27.3 pg (27.0-31.0); MEAN PLATELET VOLUME 11.2 fl (9.6-12.3); MONO # 0.6 10*3/uL (0.1-1.0); MONO % 10.8 % (3.0-9.0); NEUT # 2.9 10*3/uL (2.3-7.9); PLATELET COUNT AUTOMATED 111 10*3/uL (130-400); RED BLOOD COUNT 5.02 10*6/uL (4.50-5.90); RED CELL DISTRI WIDTH 13.1 % (0-14.5); WHITE BLOOD COUNT 5.5 10*3/uL (4.8-10.8)
[2024-07-21 06:51] LABS: ACT PARTIAL THROMBO TIME 30.5 SECONDS (20.0-32.1)
[2024-07-21 07:27] LABS: ALKALINE PHOSPHATASE 84 U/L (46-116); BUN 8 mg/dl (9-23); CHLORIDE 102 mmol/L (98-107); CHOLESTEROL 80 mg/dL (<200); FREE T4 1.16 ng/dl (0.89-1.76); LDL CHOLESTEROL 25 mg/dL (9-159); POTASSIUM 4.6 mmol/L (3.4-5.1); SGPT/ALT 37 U/L (5-49); TRIGLYCERIDES 117 mg/dl (<150)
[2024-07-21 08:00] VITALS: BP 100/68
[2024-07-21 08:30] LABS: VITAMIN D, 25-HYDROXY 62.4 ng/mL (30-100)
[2024-07-21] MEDS ORDERED: MAGNESIUM OXIDE 400 MG TAB PO SCH (10:00)
[2024-07-21] MEDS ORDERED: MULTIVITAMIN 1 TAB TAB PO SCH (10:00)
[2024-07-21] MEDS ORDERED: Cholecalciferol 2,000 UNIT TABLET (50 MCG) PO SCH (10:00)
[2024-07-21] MEDS ORDERED: BACLOFEN 10 MG TAB PO SCH (10:00)
[2024-07-21] MEDS ORDERED: Duloxetine Hydrochloride 60 MG CAP PO SCH (10:00)
[2024-07-21] MEDS ORDERED: cloNIDine Hydrochloride 0.1 MG TAB PO SCH (10:00)
[2024-07-21] MEDS ORDERED: PREGABALIN 75 MG CAP PO SCH ×2 (10:00→22:00)
[2024-07-21] MEDS ORDERED: SPIRONOLACTONE 25 MG TAB PO SCH (10:00)
[2024-07-21] MEDS ORDERED: Propranolol Hydrochloride 20 MG TAB PO SCH (10:00)
[2024-07-21] MEDS ORDERED: Thiamine 100 MG TAB PO SCH (10:00)
[2024-07-21] MEDS ORDERED: Cetirizine Hydrochloride 10 MG TAB PO SCH (10:00)
[2024-07-21] MEDS ORDERED: FERROUS SULFATE 325 MG TAB PO SCH (10:00)
[2024-07-21 12:00] VITALS: BP 102/47
[2024-07-21] MEDS ORDERED: Ceftriaxone Sodium 1 GM in SYRINGE INFUSION 10 ML IV SCH (12:00)
[2024-07-21] MEDS ORDERED: AZITHROMYCIN 250 ML IV SCH (13:00)
[2024-07-21] MEDS ORDERED: JARDIANCE10 MG PO (13:17)
[2024-07-21] MEDS ORDERED: ZITHROMAX250 MG PO (13:17)
[2024-07-21] MEDS ORDERED: AMMONIUM LACTATE 12% LOTION T SCH (22:00)
[2024-07-21] MEDS ORDERED: diphenhydrAMINE hydrochloride 25 MG CAP PO SCH (22:00)
[2024-07-21] MEDS ORDERED: ATORVASTATIN CALCIUM 20 MG TAB PO SCH (22:00)
[2024-07-21] MEDS ORDERED: Amitriptyline Hydrochloride 50 MG TAB PO SCH (22:00)
== END 2024-07-21 14:10 | disposition home or self-care (01) | DRG 137 ==
LOC: ED 07:52 → EDHOLD 10:39 → 4E 10:39 → EDHOLD 12:26 → 4E 20:04
PROVIDERS: Internal Medicine; Student in an Organized Health Care Education/Training Program; ADMIT Internal Medicine; ATTEND Internal Medicine
DX: J69.0 Pneumonitis due to inhalation of food and vomit (principal); E55.9 Vitamin D deficiency, unspecified; K21.00 Gastro-esophageal reflux disease with esophagitis, without bleeding; E66.811 Obesity, class 1; Z68.34 Body mass index [BMI] 34.0-34.9, adult; E11.65 Type 2 diabetes mellitus with hyperglycemia; F17.200 Nicotine dependence, unspecified, uncomplicated; F32.A Depression, unspecified; E78.2 Mixed hyperlipidemia; J30.2 Other seasonal allergic rhinitis; K21.9 Gastro-esophageal reflux disease without esophagitis; K29.60 Other gastritis without bleeding; I10 Essential (primary) hypertension; Z20.822 Contact with and (suspected) exposure to COVID-19; R56.9 Unspecified convulsions; Z71.6 Tobacco abuse counseling; R74.01 Elevation of levels of liver transaminase levels; Z90.49 Acquired absence of other specified parts of digestive tract; Z82.49 Family history of ischemic heart disease and other diseases of the circulatory system; Z88.8 Allergy status to other drugs, medicaments and biological substances; Z79.899 Other long term (current) drug therapy; J96.01 Acute respiratory failure with hypoxia

== ENCOUNTER → 2024-11-12 | Outpatient (CLI) | payer MEDICAID ==
[~2024-11-12] MED LIST changes: +CAPLYTA21 M1 PO; +CLONIDINE0.2 MG PO; +GINGER500 MG PO; +JARDIANCE10 MG PO; +LYRICA300 MG PO; +XANAX0.5 MG PO; +ZITHROMAX250 MG PO
== END | disposition home or self-care (01) ==
LOC: CARD 11:59
PROVIDERS: ATTEND Internal Medicine Cardiovascular Disease
DX: I25.2 Old myocardial infarction (principal); Z86.711 Personal history of pulmonary embolism

== ENCOUNTER → 2024-11-23 | Outpatient (CLI) | payer MEDICAID | END | disposition home or self-care (01) | LOC: MRI 10:57 | PROVIDERS: ATTEND Orthopaedic Surgery | DX: S56.211A Strain of other flexor muscle, fascia and tendon at forearm level, right arm, initial encounter (principal); M25.441 Effusion, right hand; X58.XXXA Exposure to other specified factors, initial encounter; Y93.89 Activity, other specified; Y92.89 Other specified places as the place of occurrence of the external cause; Y99.8 Other external cause status ==

== ENCOUNTER → 2025-06-21 | Outpatient (CLI) | payer MEDICAID | END | disposition home or self-care (01) | LOC: ORTHO 09:20 | PROVIDERS: ATTEND Orthopaedic Surgery | DX: S62.610A Displaced fracture of proximal phalanx of right index finger, initial encounter for closed fracture (principal); S60.021A Contusion of right index finger without damage to nail, initial encounter; S69.92XA Unspecified injury of left wrist, hand and finger(s), initial encounter; M79.89 Other specified soft tissue disorders; X58.XXXA Exposure to other specified factors, initial encounter; Y93.89 Activity, other specified; Y92.89 Other specified places as the place of occurrence of the external cause; Y99.8 Other external cause status ==

== ENCOUNTER → 2025-07-07 | Outpatient (CLI) | payer MEDICAID | END | disposition home or self-care (01) | LOC: ORTHO 02:53 | PROVIDERS: ATTEND Orthopaedic Surgery | DX: S62.610A Displaced fracture of proximal phalanx of right index finger, initial encounter for closed fracture (principal); M79.89 Other specified soft tissue disorders; X58.XXXA Exposure to other specified factors, initial encounter; Y93.89 Activity, other specified; Y92.89 Other specified places as the place of occurrence of the external cause; Y99.8 Other external cause status ==